=== PATIENT | male | born 1945 | race Caucasian/White ===

== ENCOUNTER 2019-04-04 17:25 | Emergency (ER) | payer MEDICARE, OTHER ==
--- OUTSIDE RECORDS SUMMARY | 2019-04-04 18:05 | XMS REPORT | Continuity of Care Document ---
:1945 External Reference #:[id number] Author Name Rajwinder Batres O.D. Address [address] [place] [address] Care Team Providers Name Role Phone Abimbola Gilmore N.P. - Nurse Care Team Information [employer]ancher [phone] Practitioner Problems Active Problems Provider Date Essential hypertension Onset: Nuclear senile cataract Rajwinder Batres O.D. Onset: 01/24/2019 Hypermetropia Rajwinder Batres O.D. Onset: 01/24/2019 Regular astigmatism Rajwinder Batres O.D. Onset: 01/24/2019 Presbyopia Rajwinder Batres O.D. Onset: 01/24/2019 Social History Type Date Description Comments Sex Unknown ETOH Use Drinks 1 Alcoholic Beverage Per Day Recreational Drug Use Regularly uses Marijuana Tobacco Use Start: Unknown End: Patient is a former smoker Smoking Status Reviewed: 04/01/19 Patient is a former smoker Allergies, Adverse Reactions, Alerts Active Allergies Reaction Severity Comments Date Flagyl Nausea Severe 01/24/2019 Seasonal Moderate 04/01/2019 Cat Dander Moderate 04/01/2019 Medications Active Medications SIG Qnty Indications Ordering Provider Date Alfuzosin HCL ER Take 1 Tablet By Unknown 10mg Mouth Every Day Tablets ER 24HR Lisinopril Unknown 40mg Tablets Vitamin D-3 2 x 4,000units Unknown 1000Unit daily Capsules Immunizations Description No Information Available Vital Signs Description No Information Available Results Description No Information Available Procedures Date Code Description Status 01/24/2019 89754 Determination Of Refractive State Completed 01/24/2019 06975 New Patient Comprehensive Exam Completed Medical Devices Description No Information Available Encounters Description No Information Available Assessments Date Code Description Provider 04/01/2019 H52.03 Hypermetropia, bilateral Rajwinder Batres O.D. 04/01/2019 H52.223 Regular astigmatism, bilateral Rajwinder Batres O.D. 04/01/2019 H52.4 Presbyopia Rajwinder Batres O.D. 01/24/2019 H25.13 Age-related nuclear cataract, bilateral Rajwinder Batres O.D. 01/24/2019 H52.03 Hypermetropia, bilateral Rajwinder Batres O.D. 01/24/2019 H52.223 Regular astigmatism, bilateral Rajwinder Batres O.D. 01/24/2019 H52.4 Presbyopia Rajwinder Batres O.D. Plan of Treatment 04/01/2019 - Rajwinder Batres O.D.H52.03 Hypermetropia, bilateralComments:You have Hyperopia, or far sightedness, I have given you a prescription for glasses.Follow up:as [id number] Regular astigmatism, bilateralComments: Astigmatism is a common vision condition that happens when a person's cornea is not symmetrical. Dr. Batres has given you a prescription to correct for this.H52.4 PresbyopiaComments:Smoking can increase the risk of developing or worsening any eye related disease, as well as affect your overall health. If you are a smoker, we strongly recommend that you quit.If you are not a smoker, we strongly recommend that you do not start. You have presbyopia. This is when the lens in your eye loses the ability to change focus, and happens as we age. A pair of reading glasses will help you see up close. Functional Status Description No Information Available Mental Status Description No Information Available Referrals Refer to Dr Reason for Referral Status Appt Date Rajwinder Batres O.D. ROUTINE Created [id number] [address] [place] [id number] [phone] Rajwinder Batres O.D. DFE Created [employer] [address] [address] [phone]
--- NOTE | 2019-04-04 18:55 | ED ---
Laceration/Wound HPI - HPI Summary HPI Summary: 74-year-old male presents with ring finger laceration. He states he cut it tonight. States area is not actively bleeding. His tetanus is up-to-date. Is not on blood thinners. He is not diabetic. He has full range of motion finger. No other injury. No foreign body in the wound. He was cut with a new clean knife. - History of Current Complaint Stated Complaint: LT RING FINGER LAC PER PT Time Seen by Provider: 04/04/19 18:30 Pain Intensity: 5 - Allergy/Home Medications Allergies/Adverse Reactions: Allergies Allergy/AdvReac Type Severity Reaction Status Date / Time metronidazole [From Flagyl] Allergy Unknown Verified 04/04/19 17:28 Reaction Details PMH/Surg Hx/FS Hx/Imm Hx Endocrine/Hematology History: Denies: Hx Anticoagulant Therapy Cardiovascular History: Reports: Hx Hypertension Infectious Disease History: No Infectious Disease History: Denies: Traveled Outside the [place] in Last 30 Days - Family History Known Family History: Positive: Non-Contributory - Social History Substance Use Type: Reports: None Smoking Status (MU): Unknown if Ever Smoked Review of Systems Negative: Fever Negative: Chest Pain Negative: Shortness Of Breath Positive: Other - left ring finger All Other Systems Reviewed And Are Negative: Yes Physical Exam Triage Information Reviewed: Yes Vital Signs On Initial Exam: Initial Vitals Temp Pulse Resp BP Pulse Ox 99.2 F 75 16 137/73 96 04/04/19 17:27 04/04/19 17:27 04/04/19 17:27 04/04/19 17:27 04/04/19 17:27 Vital Signs Reviewed: Yes Appearance: Positive: Well-Appearing Skin: Positive: Warm, Dry, Other - 2cm superficial over PIP left ring finger Head/Face: Positive: Normal Head/Face Inspection Eyes: Positive: Normal, Conjunctiva Clear ENT: Positive: Pharynx normal Respiratory/Lung Sounds: Positive: Clear to Auscultation, Breath Sounds Present Cardiovascular: Positive: Normal, RRR Musculoskeletal: Positive: Strength/ROM Intact - left hand, Other - capillary refill<2 secs Neurological: Positive: Normal Psychiatric: Positive: Normal Procedures - Laceration/Wound Repair left ring finger Location: Other - left ring finger Description: Linear Length, Depth and Shape: 2cm superficial Irrigated w/ Saline (ccs): 300 Closure: Skin Adhesive, SteriStrips Diagnostics - Vital Signs Vital Signs Temp Pulse Resp BP Pulse Ox 04/04/19 17:27 99.2 F 75 16 137/73 96 - Laboratory Lab Statement: Any lab studies that have been ordered have been reviewed, and results considered in the medical decision making process. Laceration Repair Course/Dx - Course Course Of Treatment: 74-year-old male presents with ring finger laceration. He states he cut it tonight. States area is not actively bleeding. His tetanus is up-to-date. Is not on blood thinners. He is not diabetic. He has full range of motion finger. No other injury. No foreign body in the wound. He was cut with a new clean knife. On exam has 2cm superficial laceration PIP of left ring finger. Neurovascular intact. Full range of motion. Discuss options and will glue and Steri-Stripped area and place in metal finger splint. Told to keep area clean and dry. Patient understands and agrees with the plan. - Differential Dx Differental Diagnoses: Abrasion, Avulsion, Laceration - Clinical Impression Provider Diagnoses: Laceration of left ring finger Discharge ED - Sign-Out/Discharge Documenting (check all that apply): Patient Departure Patient Received Moderate/Deep Sedation with Procedure: No - Discharge Plan Condition: Good Disposition: HOME Patient Education Materials: Care For Your Stitches (ED) Referrals: Abimbola Gilmore [Primary Care Provider] - Additional Instructions: Keep area in splint, change dressing once a day Keep area clean and dry Take Tylenol for pain every 6 hours glue will fall off on own avoid scrubbing area Return to ED if develop any new or worsening symptoms - Billing Disposition and Condition Condition: GOOD Disposition: Home
[2019-04-04 19:18] VITALS: BP 116/65
== END 2019-04-04 19:17 | disposition home or self-care (01) ==
LOC: ED 17:25
DX: S61.215A Laceration without foreign body of left ring finger without damage to nail, initial encounter (principal); W26.0XXA Contact with knife, initial encounter; Y92.9 Unspecified place or not applicable; I10 Essential (primary) hypertension
CPT/HCPCS: 12001; 99281

== ENCOUNTER 2019-10-28 10:07 | Emergency (ER) | payer OTHER ==
[2019-10-28] MEDS ORDERED: HYDROcodone/ACETAMIN 5-325 MG* 1 TAB PO ONE (10:35)
--- NOTE | 2019-10-28 12:59 | ED ---
Back Pain - HPI Summary HPI Summary: This patient is a 74-year-old male who is otherwise healthy presenting to the ED with mid and low back pain. Patient states last evening in the middle the night he awoke to use the restroom. He states he was still half-asleep when he fell backwards, injuring his mid back on a water bottle and his lower back on the nightstand. He did fall to the ground and is only endorsing back pain to the mid and low back. Denies any pain otherwise. He denies hitting his head or LOC. Denies any bladder or bowel dysfunction. Denies any numbness or tingling. He is able to ambulate. He states he is having tended to 10 pain, more located to the lower lumbar spine. Denies blood thinners. Patient does have a history of lungs issues related to asbestos exposure. - History of Current Complaint Chief Complaint: EDBackInjuryPain Stated Complaint: DIZZY, THIS MORNING , BACK PAIN Time Seen by Provider: 10/28/19 10:19 Onset/Duration: Sudden Onset Onset/Duration: Started Hours Ago Timing: Constant Back Pain Location: Is Discrete @ - low back pain Severity Initially: Severe Severity Currently: Severe Pain Intensity: 9 Pain Scale Used: 0-10 Numeric Character: Sharp Associated Signs And Symptoms: Positive: Bruising. Negative: Swelling, Redness , Weakness, Numbness, Bladder Incontinence, Bowel Incontinence, Pain with Weight Bearing - Risk Factors AAA Risk Factors: Negative TAD Risk Factors: Negative Cauda Equina Risk Factors: Negative Epidural Abscess Risk Factors: Negative - Allergies/Home Medications Allergies/Adverse Reactions: Allergies Allergy/AdvReac Type Severity Reaction Status Date / Time metronidazole [From Flagyl] Allergy Unknown Verified 04/04/19 17:28 Reaction Details Home Medications: Home Medications Alfuzosin ER (NF) [Uroxatral (NF)] 10 mg PO DAILY 10/28/19 [History Confirmed ] Cannabis Gummies 1 gum PO BEDTIME PRN 10/28/19 [History Confirmed 10/28/19] Cholecalciferol CAP/TAB(NF) [Vitamin D3 CAP/TAB (NF)] 5,000 unit PO DAILY [History Confirmed 10/28/19] Lisinopril TAB* [Prinivil TAB*] 40 mg PO DAILY 10/28/19 [History Confirmed 10/27] oxyCODONE/Acetamin 10/325(NF) [Percocet 10/325 (NF)] 1 tab PO Q6H #20 tab MDD 4 10/28/19 [Rx] PMH/Surg Hx/FS Hx/Imm Hx Previously Healthy: Yes Endocrine/Hematology History: Denies: Hx Anticoagulant Therapy Cardiovascular History: Reports: Hx Hypertension - Immunization History Hx Pertussis Vaccination: No Immunizations Up to Date: Yes Infectious Disease History: No Infectious Disease History: Denies: Traveled Outside the [place] in Last 30 Days - Family History Known Family History: Positive: Non-Contributory - Social History Lives: With Family Alcohol Use: Daily Alcohol Amount: Multiple beers a day Hx Substance Use: No Substance Use Type: Reports: Marijuana Substance Use Comment - Amount & Last Used: medical Hx Tobacco Use: No Smoking Status (MU): Former Smoker Review of Systems Negative: Fever, Chills, Fatigue, Skin Diaphoresis Negative: Palpitations, Chest Pain Negative: Shortness Of Breath, Cough Genitourinary: Negative Positive: no symptoms reported, see HPI Positive: Arthralgia Skin: Negative All Other Systems Reviewed And Are Negative: Yes Physical Exam Triage Information Reviewed: Yes Vital Signs On Initial Exam: Initial Vitals Temp Pulse Resp BP Pulse Ox 97.0 F 83 18 123/87 98 10/28/19 10:09 10/28/19 10:09 10/28/19 10:09 10/28/19 10:09 10/28/19 10:09 Vital Signs Reviewed: Yes Appearance: Positive: Well-Nourished, Pain Distress Skin: Positive: Warm, Skin Color Reflects Adequate Perfusion Head/Face: Positive: Normal Head/Face Inspection Eyes: Positive: EOMI, CAPRICE, Conjunctiva Clear Respiratory/Lung Sounds: Positive: Clear to Auscultation, Breath Sounds Present Cardiovascular: Positive: RRR, Pulses are Symmetrical in both Upper and Lower Extremities Musculoskeletal: Positive: Pain @ - mid to low spine Neurological: Positive: Speech Normal Psychiatric: Positive: Normal, Affect/Mood Appropriate AVPU Assessment: Alert Procedures - Sedation Patient Received Moderate/Deep Sedation with Procedure: No Diagnostics - Vital Signs Vital Signs Temp Pulse Resp BP Pulse Ox 10/28/19 10:09 97.0 F 83 18 123/87 98 - Laboratory Lab Statement: Any lab studies that have been ordered have been reviewed, and results considered in the medical decision making process. Back Pain Course/Dx - Course Course Of Treatment: Patient is evaluated for mid and low back pain. Patient denies hitting his head. He is endorsing 10/10 pain to the mid and low back. Denies any other injuries. Denies hitting his head or LOC. Patient is stable and vital signs are stable. He is given 10 mg hydrocodone/acetaminophen on arrival due to his discomfort level. There is some swelling and bruising noted to the low spine near L1/L2, small hematoma indicating recent injury. No pain to the cervical spine, no obvious trauma to the head. No cephalohematoma patient is alert and oriented 3. CT thoracic and lumbar spine obtained. IMPRESSION: 1. FRACTURES OF THE ANTERIOR INFERIOR ENDPLATE OF T12 AND OF THE ANTERIOR SUPERIOR ENDPLATE OF L1, WITHOUT APPRECIABLE OSSEOUS EXTENSION TO THE MIDDLE OR POSTERIOR COLUMNS. 2. FRACTURE OF THE RIGHT L1 TRANSVERSE PROCESS. 3. DEGENERATIVE DISC DISEASE AND OSTEOARTHRITIS. 4. 1 NODULE OF THE RIGHT LOWER LOBE NEAR THE COSTOPHRENIC ANGLE. THE RECOMMENDATIONS FOR FOLLOWUP AND MANAGEMENT OF AN INCIDENTALLY DETECTED PULMONARY NODULE GREATER THAN 8 MM IN SIZE, IN A PATIENT WITHOUT A HISTORY OF MALIGNANCY, INCLUDE FOLLOWUP CT AT 3 MONTHS, PET-CT, AND/OR BIOPSY. NOTES: SIZE = AVERAGE LENGTH AND WIDTH; HIGH RISK IS DEFINED A HISTORY OF SMOKING OR OTHER KNOW RISK FACTORS FOR LUNG CANCER; LOW RISK IS DEFINED MINIMAL OR ABSENT HISTORY OF SMOKING OR OTHER KNOWN RISK FACTORS. Neurosurgery not oncall. Discussed with neurosurgery at [facility], Dr. Kenney. Recommening brace. Currently at [facility], no brace is available. Information given to patient. He will f/u with his fractures as well as lung nodule at the [place] [facility]. - Diagnoses Differential Diagnosis/HQI/PQRI: Positive: Fracture, Herniated Disc Provider Diagnoses: Lumbar vertebral fracture Discharge ED - Sign-Out/Discharge Documenting (check all that apply): Patient Departure - Discharge Plan Condition: Stable Disposition: HOME Prescriptions: oxyCODONE/Acetamin 10/325(NF) [Percocet 10/325 (NF)] 1 tab PO Q6H #20 tab MDD 4 Patient Education Materials: Thoracolumbar Fracture (ED) Referrals: Abimbola Gilmore [Primary Care Provider] - Sameera Medrano MD [Medical Doctor] - Additional Instructions: Please follow up with Dr. Dimopolous for a follow up regarding your fractures in your low back [facility]. If you develop worsening pain, return to the ED DO NOT TAKE TYLENOL WHILE TAKING THE PAIN MEDICATION You may intermittently take ibuprofen 600mg four times daily Keep heat pack over the area as much as possible Gentle stretches Slow to stand and use assistive devices - Billing Disposition and Condition Condition: STABLE Disposition: Home - Attestation Statements Provider Attestation: I was available for consult. This patient was seen by the [facility]. The patient was not presented to, seen by, or examined by me. -Wilber
[2019-10-28 13:09] VITALS: BP 121/84
== END 2019-10-28 13:08 | disposition home or self-care (01) ==
LOC: ED 10:07
DX: S32.019A Unspecified fracture of first lumbar vertebra, initial encounter for closed fracture (principal); W19.XXXA Unspecified fall, initial encounter; Y92.9 Unspecified place or not applicable; Z87.891 Personal history of nicotine dependence; Z79.899 Other long term (current) drug therapy; Z88.8 Allergy status to other drugs, medicaments and biological substances; I10 Essential (primary) hypertension
CPT/HCPCS: 72128; 72131; 99282

== ENCOUNTER 2020-03-04 19:22 | Observation (INO) ==
[2020-03-04 22:25] LABS: Hematocrit 37 % (42-52); Mean Corpuscular HGB Conc 36 g/dL (31-36); Mean Corpuscular Hemoglobin 32 pg (27-31); Mean Corpuscular Volume 91 fL (80-94); Mean Platelet Volume 8.5 fL (7.4-10.4); Platelet Count 250 10^3/uL (150-450); Red Blood Count 4.02 10^6 /uL (4.18-5.48); Red Cell Distribution Width 12 % (10-15); White Blood Count 14.1 10^3/uL (3.5-10.8)
[2020-03-04 22:27] LABS: Activated Partial Thrombo Time 23.4 seconds (26.0-38.0); INR 1.23 (0.82-1.09)
[2020-03-04 22:29] LABS: Albumin 3.9 g/dL (3.2-5.2); Albumin/Globulin Ratio 1.1 (1-3); BUN/Creatinine Ratio 13.9 (8-20); Calcium 9.2 mg/dL (8.6-10.3); EGFR African American 55.2 (>60); EGFR Non-African American 45.7 (>60); Globulin 3.5 g/dL (2-4); Total Protein 7.4 g/dL (6.4-8.9)
[2020-03-04 22:30] LABS: Potassium 4.4 mmol/L (3.5-5.0)
[2020-03-04 22:31] LABS: Troponin I 0.01 ng/mL (<0.03)
[2020-03-04 22:34] LABS: ABS Basophils 0.1 10^3/ul (0-0.2); ABS Lymphocytes 1.1 10^3/ul (1.0-4.8); ABS Monocytes 1.6 10^3/ul (0-0.8); ABS Neutrophils 11.3 10^3/ul (1.5-7.7); Eosinophil % 0.2 %; Lymphocyte % 7.7 %
[2020-03-04] MEDS ORDERED: Iodixanol (CONTRAST) 320 MG/ML 100 ML SDV IV ONE (22:53)
[2020-03-05 01:14] LABS: Urine Appearance Cloudy; Urine Bilirubin Negative (Negative); Urine Blood Negative (Negative); Urine Color Yellow; Urine Glucose Negative (Negative); Urine Ketones Negative (Negative); Urine Nitrite Negative (Negative); Urine Protein 1+(30 mg/dL) (Negative); Urine Specific Gravity 1.023 (1.010-1.030); Urine Urobilinogen Negative (Negative)
[2020-03-05 01:17] LABS: Urine Bacteria Absent (Absent); Urine Red Blood Cell 1+(3-5/hpf) (Absent); Urine White Blood Cell 2+(11-20/hpf) (Absent)
[2020-03-05] MEDS ORDERED: cefTRIAXone 1 gm/50 mL NS BAG 1 GM/50 ML BAG IV ONE (01:55)
[2020-03-05] MEDS: NS 0.9% 1000 ml BAG 2,000 ML IV ONE (02:40)
[2020-03-05] MEDS: Prochlorperazine 5 mg/ml 2 ml VIAL (10 mg) IV PRN ×2 (05:08→20:29)
[2020-03-05] MEDS: NS 0.9% 1000 ml BAG 1,000 ML IV SCH ×2 (05:13→15:48)
[2020-03-05 05:15] LABS: C Reactive Protein 176.74 mg/L (<8.01)
[2020-03-05] MEDS: Enoxaparin 40 MG/0.4 ML SYR SUBCUT SCH (06:05)
[2020-03-05 07:27] LABS: Calcium 8.1 mg/dL (8.6-10.3); EGFR African American 67.5 (>60); EGFR Non-African American 55.7 (>60); Potassium 4.1 mmol/L (3.5-5.0)
[2020-03-05 08:09] LABS: ABS Eosinophils 0.1 10^3/ul (0-0.6); ABS Lymphocytes 1.7 10^3/ul (1.0-4.8); ABS Monocytes 1.5 10^3/ul (0-0.8); ABS Neutrophils 8.7 10^3/ul (1.5-7.7); Eosinophil % 0.6 %; Hematocrit 36 % (42-52); Hemoglobin 12.5 g/dL (14.0-18.0); Lymphocyte % 14.1 %; Mean Corpuscular HGB Conc 35 g/dL (31-36); Mean Corpuscular Hemoglobin 32 pg (27-31); Mean Corpuscular Volume 91 fL (80-94); Mean Platelet Volume 8.1 fL (7.4-10.4); Platelet Count 230 10^3/uL (150-450); Red Blood Count 3.89 10^6 /uL (4.18-5.48); Red Cell Distribution Width 12 % (10-15)
[2020-03-05] MEDS ORDERED: Alfuzosin ER 10 mg TAB.ER (NF) 10 MG TAB.ER PO SCH ×2 (09:00→11:00)
[2020-03-05 09:16] LABS: Urine Creatinine Concentration 73.32 mg/dL
[2020-03-05] MEDS: Senna TAB 8.6 mg TAB PO SCH (10:22)
[2020-03-05] MEDS: Polyethylene Glycol 3350 17 GM PACKET PO SCH (10:22)
[2020-03-05] MEDS ORDERED: CMCS: Alfuzosin ER 10 mg TAB.ER (NF) 10 MG TAB.ER PO SCH (11:00)
[2020-03-05] MEDS: ALFUZOSIN 10 MG PO SCH ×2 (11:00→20:29)
[2020-03-05] MEDS ORDERED: cefTRIAXone 1 gm/50 mL NS BAG 1 GM/50 ML BAG IVPB SCH (21:00)
[2020-03-06] MEDS ORDERED: Artificial Tear OPHTH.OINT 3.5 GM BOTH EYES PRN (02:02)
[2020-03-06 05:35] LABS: ABS Eosinophils 0.2 10^3/ul (0-0.6); ABS Lymphocytes 1.3 10^3/ul (1.0-4.8); ABS Monocytes 0.9 10^3/ul (0-0.8); ABS Neutrophils 6.9 10^3/ul (1.5-7.7); Eosinophil % 1.9 %; Hematocrit 33 % (42-52); Hemoglobin 11.7 g/dL (14.0-18.0); Lymphocyte % 13.7 %; Mean Corpuscular HGB Conc 36 g/dL (31-36); Mean Corpuscular Hemoglobin 33 pg (27-31); Mean Corpuscular Volume 91 fL (80-94); Mean Platelet Volume 8.1 fL (7.4-10.4); Platelet Count 222 10^3/uL (150-450); Red Blood Count 3.56 10^6 /uL (4.18-5.48); Red Cell Distribution Width 12 % (10-15); White Blood Count 9.2 10^3/uL (3.5-10.8)
[2020-03-06] MEDS: Enoxaparin 40 MG/0.4 ML SYR SUBCUT SCH (05:49)
[2020-03-06 06:54] LABS: Calcium 8.6 mg/dL (8.6-10.3); Potassium 4.1 mmol/L (3.5-5.0)
[2020-03-06 07:00] LABS: BUN/Creatinine Ratio 12.4 (8-20); EGFR Non-African American 69.4 (>60)
[2020-03-06] MEDS: Senna TAB 8.6 mg TAB PO SCH (08:43)
[2020-03-06] MEDS: Polyethylene Glycol 3350 17 GM PACKET PO SCH (08:43)
[2020-03-06] MEDS: ALFUZOSIN 10 MG PO SCH ×2 (08:47→20:31)
[2020-03-06] MEDS ORDERED: Magnesium Hydroxide LIQ 30 ML UDC PO PRN (09:00)
[2020-03-07] MEDS: Enoxaparin 40 MG/0.4 ML SYR SUBCUT SCH (05:52)
[2020-03-07] MEDS: ALFUZOSIN 10 MG PO SCH (08:34)
[2020-03-07] MEDS: Polyethylene Glycol 3350 17 GM PACKET PO SCH (08:35)
[2020-03-07] MEDS: Senna TAB 8.6 mg TAB PO SCH (08:35)
[2020-03-07 08:59] VITALS: BP 149/69
== END 2020-03-07 11:30 | disposition home or self-care (01) ==
LOC: MED 19:22 → ED 19:22 → MED 03-05 04:19
PROVIDERS: ADMIT Nurse Practitioner Acute Care; ATTEND Internal Medicine